=== PATIENT | male | born 1975 | race African-American/Black ===

== ENCOUNTER 2017-12-23 09:59 | Inpatient (IN) | payer OTHER ==
[2017-12-23] VITALS (12 sets, daily range): BP systolic 100–126; BP diastolic 51–73
[~2017-12-23] VITALS: Ht 190.5 cm; Wt 113.9 kg
[~2017-12-23 09:59] MED LIST: ADDERALL 5 MG TA5 MG; ADDERALL XR 1515 MG; DOXYCYCLINE 10100 MG PO; HYDROCODONE-APA1 TA1 PO
[2017-12-23 10:27] LABS: ABSOLUTE BASOPHILS 0.1 thou/uL (0.0-0.2); ABSOLUTE EOSINOPHILS 0.2 thou/uL (0.0-0.7); ABSOLUTE LYMPHOCYTES 1.6 thou/uL (0.8-5.3); ABSOLUTE MONOCYTES 0.3 thou/uL (0.0-1.2); ABSOLUTE NEUTROPHILS 8.1 thou/uL (1.6-8.1); BASOPHILS 0.7 %; EOSINOPHILS 1.6 %; HEMATOCRIT 42.8 % (42.0-52.0); HEMOGLOBIN 14.4 gm/dL (14.0-18.0); LYMPHOCYTES 15.6 %; MCH 29.4 pg (26.0-34.0); MCHC 33.6 g/dL (28.0-37.0); MCV 87.5 fL (80.0-100.0); MONOCYTES 3.2 %; MPV 6.9 fl. (7.2-11.1); NUCLEATED RBCS 0 /100WBC; PLATELET COUNT* 224 thou/uL (150-400); POLYS 78.9 %; RBC 4.89 mil/uL (4.50-6.00); RDW-CV 13.3 % (10.5-14.5); WBC 10.3 thou/uL (4.0-11.0)
[2017-12-23 10:36] LABS: CALCIUM 9.3 mg/dL (8.5-10.1); CREATININE 1.8 mg/dL (0.6-1.3); POTASSIUM 4.8 mmol/L (3.5-5.1)
[2017-12-23 10:42] LABS: ALBUMIN 3.9 g/dL (3.4-5.0); TOTAL BILIRUBIN 0.6 mg/dL (<0.1-1.0); TOTAL PROTEIN 7.5 g/dL (6.4-8.2); TROPONIN-I LEVEL 0.07 ng/mL (<0.06); URIC ACID* 8.7 mg/dL (2.6-7.2)
[2017-12-23 12:28] LABS: URINE BILIRUBIN NEGATIVE (Negative); URINE BLOOD NEGATIVE (Negative); URINE CLARITY CLEAR; URINE COLOR YELLOW; URINE GLUCOSE-RANDOM NEGATIVE (Negative); URINE KETONES TRACE (Negative); URINE LEUKOCYTES-REFLEX NEGATIVE (Negative); URINE NITRITE-REFLEX NEGATIVE (Negative); URINE PROTEIN TRACE (Negative); URINE UROBILINOGEN 0.2 E.U./dl (0.2-1.0)
[2017-12-23 15:31] LABS: APTT 22.4 Seconds (25.0-31.3); INR 1.1; PROTIME 10.5 Seconds (9.20-11.50)
--- NOTE | 2017-12-23 16:20 | NUR ---
RECEIVED REPORT FROM JAIRO MORENO IN ER. PT TRANSFERED TO TELE FLOOR AROUND 1535. PT A&OX4. VSS. O2 SAT 98% ON RA. PT ORIENTED TO ROOM BED AND CALL LIGHT. PT COMMUNICATES UNDERSTANDING. 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 ADMISSION HISTORY, EDUCATION, AND ASSESSMENT COMPLETED CHARTED. FAMILY AT BEDSIDE. PT REPORTS LEFT SHOULDER PAIN 5/10. DOES NOT WANT MEDICATION FOR PAIN AT THIS TIME. DURING PT'S ADMISSION, TROPONIN LEVEL CAME BACK CRITICALLY HIGH AT 0.82 - DR ZHENG NOTIFIED. ORDERS RECIEVED TO NOTIFY CARDIOLOGY AND TO SEND PT TO ICU. CONTACTED DR. ENGLE - NEW ORDER RECEIVED TO START ASPIRIN 81MG PO DAILY. WILL CALL REPORT TO ICU NURSE. PT CURRENTLY LYING IN BED. LOW FALL RISK PRECAUTIONS IN PLACE. CALL LIGHT IS WITHIN REACH, HOURLY ROUNDING PERFORMED. WCTM.
--- NOTE | 2017-12-23 17:15 | NUR ---
1650 PT REEIVED PER WHEELCHAIR FROM TELE. SEE DOCUMENTED ASSESSMENT. NSR WITH FIRST DEGREE BLOCK
--- NOTE | 2017-12-23 18:22 | NUR ---
CT OF CHEST COMPLETED WELL CHEST FILMS. HEPARIN DRIP STARTED. PT C/O LEFT SHOULDER ACHE ONLY. VSS. FAMILY WITH PATIENT
[2017-12-24] VITALS (13 sets, daily range): BP systolic 95–126; BP diastolic 38–76
--- NOTE | 2017-12-24 06:30 | NUR ---
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
[2017-12-24 07:06] LABS: CHOLESTEROL 96 mg/dL (<200); HDL CHOLESTEROL 49 mg/dL (>40); LDL CHOLESTEROL 43 mg/dL (<100); SERUM ASSESSMENT Clear; TRIGLYCERIDE 22 mg/dL (<150); VLDL 4 mg/dL (<40)
[2017-12-24 09:20] LABS: CALCIUM 8.3 mg/dL (8.5-10.1); CREATININE 1.3 mg/dL (0.6-1.3); POTASSIUM 3.8 mmol/L (3.5-5.1)
--- NOTE | 2017-12-24 09:20 | NUR ---
6388 ASSUMED CARE OF PATIENT. PLEASE SEE DOCUMENTED ASSESSMENT. ELEVATED TROPONIN CALLED TO DR ENGLE. MEDICATED FOR LEFT SHOULDER PAIN CHARTED
--- NOTE | 2017-12-24 10:05 | NUR ---
DR ENGLE TO SEE PATIENT. PATIENT HAD EMESIS OF 500 ML UNDIGESTED FOOD
--- NOTE | 2017-12-24 10:31 | NUR ---
NAUSEA RESOLVED. HEPARIN DISCONTINUED PER ORDER DR ENGLE. DR ZHENG TO SEE PATIENT
--- NOTE | 2017-12-24 12:08 | NUR ---
TO TRANSFER TO ROOM 209. PT AND SPOUSE INFORMED. SBAR FAXED
--- NOTE | 2017-12-24 12:51 | NUR ---
TRANSFERRED TO 209 PWE WHEELCHAIR WITH ALL RECORDS AND BELONGINGS
--- NOTE | 2017-12-24 15:41 | NUR ---
PT ARRIVED TO THE FLOOR AT ABOUT 130O. PT ORIENTED TO UNIT AND SERVICES, FOOD AND DRINK OFFERED. PT GIVEN MATERIALS TO SHOWER AND WAS MEDICATED FOR RIGHT SHOULDER AND PERCTORIAL PAIN PER MAR. VSS AND PT IS TRACING NSR ON THE MONITOR. NURSING WILL CONTINUE MONITOR COMPLETING HOURLY ROUNDING FOR COMFORT AND SATEY.
--- NOTE | 2017-12-24 15:52 | EKG ---
[place] [address] ELECTROCARDIOGRAM REPORT Name: NIMO MARTINEZ Room: [address] IN [facility].#: [id number] Admission: 12/23/17 Attend Phys: Bobby Rodriguez, Discharge: Date of : 75 Report #: [id number] THIS REPORT FOR: //name// [facility] ED Test Date: 2017-12-23 Test Time: 10:07:17 Pat Name: NIMO MARTINEZ Department: Room: Gender: Health Type Technician: Eryn VARGHESE : 1975 Requested By: Kamari Agee Order Number: [id number] MD: Tyler San Measurements Intervals [place] Rate: 85 P: 62 TX: 186 QRS: 42 QRSD: 110 T: 26 QT: 373 QTc: 444 Interpretive Statements Sinus rhythm No previous ECG available for comparison Electronically Signed On 12-24-2017 15:52:29 CDT by Tyler San [email or web address] <ELECTRONICALLY SIGNED> By: Tyler San MD, [facility] 12/24/17 1552 D: [id number] [facility] Tyler San MD, FACC /EPI
--- NOTE | 2017-12-24 15:54 | EKG ---
[place] [address] ELECTROCARDIOGRAM REPORT Name: NIMO MARTINEZ Room: [address] IN [facility].#: [id number] Admission: 12/23/17 Attend Phys: Bobby Rodriguez, Discharge: Date of : 75 Report #: [id number] THIS REPORT FOR: //name// [facility] ED Test Date: 2017-12-23 Test Time: 15:12:01 Pat Name: NIMO MARTINEZ Department: Room: [place] [address] Gender: Float Operator: Eryn VARGHESE : 1975 Requested By: Kamari Agee Order Number: [id number] MD: Tyler San Measurements Intervals [place] Rate: 70 P: 52 [place]: 198 QRS: 30 QRSD: 82 T: 19 QT: 408 QTc: 441 Interpretive Statements Sinus rhythm No previous ECG available for comparison Electronically Signed On 12-24-2017 15:54:05 CDT by Tyler San [email or web address] <ELECTRONICALLY SIGNED> By: Tyler San MD, [facility]IN [facility] 12/24/17 1554 11 11 Tyler San MD, FACC /EPI
--- NOTE | 2017-12-24 20:10 | NUR ---
PT REMAINED A&O TRACING SR. C/O PAIN EFFECTIVELY REDUCED TO TOLERABBLE LEVELS WITH PRN PAIN MEDICATION. VSS ON ROOM AIR, NURSING WILL CONTINUE TO MONITOR.
[2017-12-25 00:43] VITALS: BP 118/66
[2017-12-25 02:59] LABS: AMP/METHAMP Negative (Negative); BARBITURATES Negative (Negative); BENZODIAZEPINES Negative (Negative); COCAINE Negative (Negative); METHADONE Negative (Negative); OPIATES POSITIVE (Negative); PCP Negative (Negative); THC Negative (Negative)
[2017-12-25 04:17] VITALS: BP 107/67
[2017-12-25 05:40] LABS: HEMATOCRIT 36.5 % (42.0-52.0); HEMOGLOBIN 12.6 gm/dL (14.0-18.0); MCH 30.3 pg (26.0-34.0); MCHC 34.6 g/dL (28.0-37.0); MCV 87.6 fL (80.0-100.0); MPV 7.6 fl. (7.2-11.1); RBC 4.17 mil/uL (4.50-6.00); RDW-CV 13.1 % (10.5-14.5); WBC 5.9 thou/uL (4.0-11.0)
[2017-12-25 06:09] LABS: CALCIUM 8.1 mg/dL (8.5-10.1); CREATININE 1.1 mg/dL (0.6-1.3); MAGNESIUM 1.8 mg/dL (1.8-2.4); POTASSIUM 3.7 mmol/L (3.5-5.1)
--- NOTE | 2017-12-25 06:37 | NUR ---
Pt reports cramping to L shoulder and arm, and R leg. Paged Dr. Rodriguez, received order for cyclobenzaprine, which was administered at bedtime. This morning pt reports that he slept well overnight, and states the cyclobenzaprine worked "way better than the other stuff." VSS. States he is hopeful of being discharged today. Will continue to monitor.
--- NOTE | 2017-12-25 09:52 | NUR ---
RECEIVED REPORT AND ASSUMED CARE AT 0700. VSS. CARDIAC MONITORING IN PLACE. PT DENIES ANY COMPLAINTS OF PAIN. PT ON RA, UP AD RINA IN ROOM. PT RESTING, REPORTS MUSCLE RELAXER HELPED MORE THAN PAIN MEDICINCE PREVIOUSLY GIVEN PRN. PT HOPING TO GO HOME TODAY. BED IN LOWEST POSITION, CALL IGHT WITHIN REACH. ASSESSMENT COMPLETED CHARTED. WILL CONTINUE TO MONITOR FOR REMAINDER OF THE SHIFT.
[2017-12-25 11:20] VITALS: BP 116/65
[2017-12-25] MEDS ORDERED: ASA5UEC PO (14:04)
[2017-12-25 14:19] VITALS: BP 116/65
--- NOTE | 2017-12-25 14:34 | NUR ---
DISCHARGE ORDERS PLACED. PAPERWORK COMPLETED BY NURSING. HOURLY ROUNDING COMPLETED AND ALL NEEDS MET. IV AND CARDIAC MONITORING IN PLACE. PT DENIES ANY COMPLAINTS OF PAIN. DISCHARGE INSTRUCTIONS DISCUSSED WITH PT, REGARDING STRESS ECHO FOR TOMORROW 12/26/17, NO CAFFEINE UNTIL AFTER STESS COMPLETED. NPO AFTER MIDNIGHT PRIOR TO TEST. PT VERBALIZED UNDERSTANDING. ALL QUESTIONS AND CONCERNS ANSWERED AT THSI TIME. PT AMBULATED TO PERSONAL VEHICLE AND LEFT WITH HIS .
--- NOTE | 2017-12-26 17:14 | CON ---
[address] [address] CONSULTATION Name: NIMO MARTINEZ Room: [address] IN [facility].#: [id number] Admission: 12/23/17 Attend Phys: Bobby Rodriguez, Discharge: 12/25/17 Date of : 75 Report #: [id number] THIS REPORT FOR: //name// CC: [facility] physician/PCP Edilberto Rodriguez INDICATION: Elevated troponin. HISTORY OF PRESENT ILLNESS: The patient is a very pleasant, fairly healthy-appearing, 42-year-old gentleman, who was admitted to the hospital after having a near syncopal episode at the end of a 10K foot race yesterday. The patient reports being in his usual state of health. He finished the 10K race event throughout which he felt fine. Once he completed the race, he began to feel nauseous and lightheaded. He laid down in the shade and continued to feel poorly. EMS was summoned. He did have some nausea and vomiting at that time. He was brought to the hospital for further evaluation. Throughout this, he did not complain of chest pain or shortness of breath. His only cardiac risk factor is a family history of coronary artery disease in his father in his 50s. There is no history of diabetes, hypertension, hyperlipidemia or tobacco use. A 12-lead EKG in the Emergency Room showed sinus rhythm with no significant ST or T-wave abnormalities. His initial troponin was 0.07 with a subsequent rise in troponin to 1.09. Throughout his hospital stay, he has been without significant complaint. He does note some muscle tenderness in his left bicep and shoulder area as well as right leg. The pain in these regions is significantly reproducible with palpation. PAST MEDICAL HISTORY: ADHD. CURRENT MEDICATIONS: Adderall 50 mg daily. ALLERGIES: None. SOCIAL HISTORY: The patient does not smoke. He does not drink alcohol. REVIEW OF SYSTEMS: On 14-point review of systems, he was without other complaint with the exception of symptoms outlined above. PHYSICAL EXAMINATION: VITAL SIGNS: Stable. Blood pressure 107/57, pulse is 51 and regular. GENERAL: This is a healthy-appearing, pleasant young gentleman in no distress. Mood and affect appropriate. HEENT: Extraocular muscles intact. Mucous membranes are moist. NECK: Examination of the neck shows no jugular venous distention. There are no carotid bruits. CHEST: Chest reveals clear lung randall without wheezes, rales or rhonchi. CARDIOVASCULAR: Reveals a bradycardic rate with [place] [address] CONSULTATION Name: NIMO MARTINEZ Room: [address]#: [id number] Admission: 12/23/17 Attend Phys: Bobby Rodriguez, Discharge: 12/25/17 Date of : 75 Report #: [id number] S3 or S4 gallop. ABDOMEN: Reveals normal bowel sounds. The abdomen is soft, nontender. EXTREMITIES: Shows no edema. Peripheral pulses are 2+ and easily palpable. SKIN: Warm and dry. A 12-lead EKG shows sinus rhythm with no significant ST or T-wave abnormalities. LABORATORY DATA: Labs are reviewed. Sodium 141, potassium 3.8, chloride 108, bicarbonate 26, BUN 15, creatinine 1.3, serum glucose 84. LFTs within normal limits. Total CPK 753. Troponin currently 1.09. Total cholesterol 96, triglycerides 22, HDL 49, LDL 43. White blood cell count 10.3, hemoglobin 14.4, platelet count 224,000. IMPRESSION AND RECOMMENDATIONS: 1. Elevated troponin, likely due to strain from dehydration, significant exertion and possible heat stroke. I would proceed with stress echocardiography to further evaluate. This could be performed as an outpatient. 2. Acute renal failure due to dehydration, resolved. At this point in time, I believe the patient could be safely discharged to home to follow up in the next 2 days with a stress echocardiogram. <ELECTRONICALLY SIGNED> By: Tyler San MD, FACC 12/26/17 1714 1022 99Tyler San MD, FACC /nt
== END 2017-12-25 14:30 | disposition still patient (30) | DRG 280 ==
LOC: M.ERS 09:59 → M.ICU 12:54 → M.2W 12:54 → M.TBA-ER 12:54 → M.2W 15:36 → M.ICU 16:51 → M.2W 12-24 12:56
PROVIDERS: Internal Medicine; Nurse Practitioner Family; ADMIT Family Medicine
DX: I21.9 Acute myocardial infarction, unspecified (principal); N17.0 Acute kidney failure with tubular necrosis; M62.82 Rhabdomyolysis; E86.0 Dehydration; M25.512 Pain in left shoulder; F90.9 Attention-deficit hyperactivity disorder, unspecified type; E66.9 Obesity, unspecified; Z68.31 Body mass index [BMI] 31.0-31.9, adult; X32.XXXA Exposure to sunlight, initial encounter; Z79.82 Long term (current) use of aspirin; Y93.89 Activity, other specified; Z82.49 Family history of ischemic heart disease and other diseases of the circulatory system; Y92.89 Other specified places as the place of occurrence of the external cause; Y99.8 Other external cause status

== ENCOUNTER → 2017-12-28 | Outpatient (CLI) | payer OTHER ==
[~2017-12-28] MED LIST changes: +ASA5UEC PO
--- NOTE | 2017-12-29 11:18 | EXE ---
[place] [address] STRESS ECHOCARDIOGRAM Name: NIMO MARTINEZ Room: [facility]#: [id number] Admission: 12/28/17 Attend Phys: Renan Banerjee Discharge: Date of : 75 Date of Service: 12/28/17 1500 Report #: [id number] THIS REPORT FOR: //name// APPROVED REPORT Study performed: 12/28/2017 13:30:33 Exam: Stress Echocardiogram Indication: Syncope, Troponin elevation Patient Location: Out-Patient Stress Nurse: Selma Watts RN Supervising Physician: Tyler San MD Ht: 6 ft 3 in HR: 69 bpm BP: 118/90 mmHg Medical History Medications: No cardiac medications Allergies: No known drug allergies Cardiac Risk Factors: FHX of CAD Procedure The patient underwent an Exercise Stress Test using the Luis Protocol. Blood pressure, heart rate, and EKG were monitored. An Echocardiogram was performed by pipeline technician in four stages in quad fashion. At peak stress, four selected images were obtained and placed side by side with resting images for comparison. Stress Test Details Stress Test: Exercise stress testing was performed using a Luis protocol. HR Resting HR: 69 bpm Max Heart Rate (APMHR): 178 bpm Max HR Achieved: 164 bpm Target HR (85% APMHR): 151 bpm % of APMHR: 92 Recovery HR: 90 bpm HR response to stress: Normal HR response to stress BP Resting BP: 118/90 mmHg Max BP: 167/68 mmHg Recovery BP: 137/88 mmHg ECG Resting ECG: [place] [address] STRESS ECHOCARDIOGRAM Name: NIMO MARTINEZ Room: [facility]#: [id number] Admission: 12/28/17 Attend Phys: Renan Banerjee Discharge: Date of : 75 Date of Service: 12/28/17 [facility][note 3] Report #: [id number] Stress ECG: Sinus Tachycardia Maximum ST Deviation: 0 mm Arrhythmia: None Recovery ECG: Sinus Rhythm Recovery ST Deviation: 0 mm Recovery Arrhythmia: None Clinical Reason for Termination: Maximal effort Exercise duration: 11 min 56 sec Highest Stage Achieved: Stage 4: 4.2 mph at 16% grade. Exercise capacity: 13.48 METs Overall Exercise Capacity for Age: Good Pre-Stress Echo The resting Echocardiogram showed normal left ventricular contractility with an estimated Ejection Fraction of about 50-55%. Post-Stress Echo The stress Echocardiogram showed normal left ventricular contractility with an estimated Ejection Fraction of about >70%. Conclusion Clinical Response: Non-ischemic Exercise Capacity: Superior Stress ECG Response: Non-ischemic Stress Echo Images: Non-ischemic low risk stress echo for future cardiac events Other Information Study Quality: Excellent <Conclusion> low risk stress echo for future cardiac events <ELECTRONICALLY SIGNED> By: Mikel Garcia MD, FACC 12/28/17 1500 1500 1500 Mikel Garcia MD, FACC /INF
== END ==
LOC: M.CRD 12:53
DX: R55 Syncope and collapse (principal); R79.89 Other specified abnormal findings of blood chemistry; R07.9 Chest pain, unspecified

== ENCOUNTER 2019-04-27 03:33 | Emergency (ER) | payer OTHER ==
[~2019-04-27] VITALS: Ht 190.5 cm; Wt 113.4 kg
[2019-04-27] MEDS ORDERED: ADDERALL 10 MG10 MG PO (03:44)
[2019-04-27] MEDS ORDERED: ADDERALL XR 1515 MG PO (03:44)
[2019-04-27 04:17] LABS: ABSOLUTE BASOPHILS 0.1 thou/uL (0.0-0.2); ABSOLUTE EOSINOPHILS 0.2 thou/uL (0.0-0.7); ABSOLUTE LYMPHOCYTES 1.7 thou/uL (0.8-5.3); ABSOLUTE MONOCYTES 0.8 thou/uL (0.0-1.2); ABSOLUTE NEUTROPHILS 4.1 thou/uL (1.6-8.1); BASOPHILS 0.8 %; EOSINOPHILS 2.8 %; HEMATOCRIT 40.1 % (42.0-52.0); HEMOGLOBIN 13.7 gm/dL (14.0-18.0); MCH 29.1 pg (26.0-34.0); MCV 85.5 fL (80.0-100.0); MONOCYTES 12.3 %; MPV 6.9 fl. (7.2-11.1); NUCLEATED RBCS 0 /100WBC; PLATELET COUNT* 214 thou/uL (150-400); POLYS 59.1 %; RDW-CV 13.4 % (10.5-14.5); WBC 6.9 thou/uL (4.0-11.0)
[2019-04-27 04:20] LABS: ANION GAP 8 mmol/L (7-16); BUN 20 mg/dL (7-18); CHLORIDE 100 mmol/L (98-107); CO2 32 mmol/L (21-32); CREATININE 1.2 mg/dL (0.6-1.3); GLUCOSE 102 mg/dL (70-99); POTASSIUM 4.1 mmol/L (3.5-5.1); SODIUM 140 mmol/L (136-145)
[2019-04-27 04:29] LABS: ALBUMIN 3.4 g/dL (3.4-5.0); ALKALINE PHOSPHATASE 84 U/L (46-116); LIPASE 66 U/L (73-393); SGOT 24 U/L (15-37); SGPT 36 U/L (30-65); TOTAL BILIRUBIN 0.3 mg/dL (<0.1-1.0); TOTAL PROTEIN 7.1 g/dL (6.4-8.2); TROPONIN-I LEVEL <0.06 ng/mL (<0.06)
[2019-04-27 04:39] LABS: URINE BILIRUBIN NEGATIVE (Negative); URINE BLOOD NEGATIVE (Negative); URINE CLARITY SL CLOUDY; URINE COLOR YELLOW; URINE GLUCOSE-RANDOM NEGATIVE (Negative); URINE KETONES NEGATIVE (Negative); URINE LEUKOCYTES-REFLEX NEGATIVE (Negative); URINE NITRITE-REFLEX NEGATIVE (Negative); URINE PROTEIN TRACE (Negative); URINE UROBILINOGEN 0.2 E.U./dl (0.2-1.0)
[2019-04-27 06:30] VITALS: BP 144/72
--- NOTE | 2019-04-28 10:40 | EKG ---
[place] [address] ELECTROCARDIOGRAM REPORT Name: NIMO MARTINEZ Room: [facility]#: [id number] Admission: 04/27/19 Attend Phys: Discharge: 04/27/19 Date of : 75 Report #: [id number] THIS REPORT FOR: //name// [facility] ED Test Date: 2019-04-27 Test Time: 03:42:34 Pat Name: NIMO MARTINEZ Department: Room: Gender: M [employer] Roll Tender: [place] : 1975 Requested By: Alexander Solo Order Number: [id number] MD: Tyler San Measurements Intervals [place] Rate: 58 P: 49 [place]: 197 QRS: 46 QRSD: 85 T: 27 QT: 441 QTc: 434 Interpretive Statements Sinus rhythm Atrial premature complex Compared to ECG 12/23/2017 15:12:01 Atrial premature complex(es) now present Electronically Signed On 04-28-2019 10:40:44 CDT by Tyler San [email or web address] <ELECTRONICALLY SIGNED> By: Tyler San MD, [facility] 04/28/19 1040 034 1 Tyler San MD, FACC /EPI
== END 2019-04-27 06:30 | disposition home or self-care (01) ==
LOC: M.ERS 03:33
PROVIDERS: Family Medicine
DX: R10.32 Left lower quadrant pain (principal); F90.9 Attention-deficit hyperactivity disorder, unspecified type

== ENCOUNTER 2019-12-01 15:11 | Emergency (ER) | payer OTHER ==
[~2019-12-01] VITALS: Ht 190.5 cm; Wt 111.1 kg
[~2019-12-01 15:11] MED LIST changes: +ADDERALL 10 MG10 MG PO; +ADDERALL XR 1515 MG PO
[2019-12-01] MEDS ORDERED: IBUPROFEN 800800 M1 PO ×2 (16:21→16:22)
[2019-12-01] MEDS ORDERED: NORCO 5-325 TA1 EAC1 PO (16:21)
[2019-12-01 16:37] VITALS: BP 129/86
== END 2019-12-01 16:38 | disposition home or self-care (01) ==
LOC: M.ERS 15:11
DX: S43.121A Dislocation of right acromioclavicular joint, 100%-200% displacement, initial encounter (principal); F90.9 Attention-deficit hyperactivity disorder, unspecified type; V29.3XXA Motorcycle rider (driver) (passenger) injured in unspecified nontraffic accident, initial encounter; Y93.89 Activity, other specified; Y92.89 Other specified places as the place of occurrence of the external cause; Y99.8 Other external cause status